=== PATIENT | female | born 1965 | race African-American/Black ===

== ENCOUNTER 2024-11-06 10:08 | Day surgery (SDC) | payer OTHER ==
[2024-11-02 11:12] LABS: Absolute Basophils 0.2 K/uL (0-0.5); Absolute Eosinophils 0.3 K/uL (0-0.5); Absolute Lymphocytes (CBC) 2.3 K/uL (0.7-4.9); Absolute Monocytes 0.5 K/uL (0.1-1.3); Eosinophils % 4.4 % (0-4.4); Hematocrit 42.8 % (36.0-45.0); Hemoglobin 14.6 g/dL (12.0-15.0); Lymphocytes % 36.7 % (15.3-44.8); MCH 28.8 pg (27.0-35.0); MCV 84.7 fL (80-100); MPV 9.5 fL (7.6-11.3); Monocytes % 7.6 % (3.3-12.3); Neutrophils % 48.3 % (41.7-73.7); Platelets 231 thou/uL (152-406); RBC Red Blood Cell Count 5.05 M/uL (3.86-4.86); Red Cell Distribution Width 13.5 % (12.1-15.2)
[2024-11-02 11:17] LABS: PT Prothrombin Time 10.8 SECONDS (9.4-12.5); Protime INR 0.96
[2024-11-02 11:21] LABS: Specific Gravity 1.023 (1.005-1.030); Sqamous Epithelial <5 /HPF (None Seen); Urine Bacteria None Seen /HPF (<20); Urine Bilirubin NEGATIVE (Negative); Urine Blood Negative (Negative); Urine Clarity Clear (Clear); Urine Color Light-Yellow (Yellow); Urine Culture Reflex Order NOT NEEDED; Urine Glucose NEGATIVE (Negative); Urine Ketones NEGATIVE (Negative); Urine Microscopic Reflex YN ORDER UMIC; Urine Nitrite NEGATIVE (Negative); Urine Protein NEGATIVE (Negative); Urine Urobilinogen Normal (Normal); Urine WBC <5 /HPF (<5); Urine pH 7.5 (5.0-7.0)
[2024-11-02 11:29] LABS: Albumin 3.5 g/dL (3.4-5.0); Anion Gap 7.2 mEq/L (5.0-15.0); Bilirubin Total 0.3 mg/dL (0.2-1.0); Globulin 3.5 g/dL (2.3-3.5); Potassium 4.2 mEq/L (3.5-5.1)
--- NOTE | 2024-11-02 13:13 | RAD REPORT ---
EXAMINATION: TWO VIEW CHEST XR CLINICAL INDICATION: Female, 58 years old. [facility] pre op for day surgery. Hypertension TECHNIQUE: 2 view radiographs of the chest were performed. COMPARISON: No prior exam. FINDINGS: The lungs are well inflated and clear. No pneumothorax or sizable effusion. The heart is normal in si ze. Mediastinal contours are unremarkable. IMPRESSION: No acute or significant abnormalities.
[2024-11-06] MEDS: Oxycodone HCl/Acetaminophen 5/325 MG TAB PO ONE (10:28)
[2024-11-06] MEDS: CELECOXIB 100 MG CAPSULE PO ONE (10:28)
[2024-11-06] MEDS: GABAPENTIN 300 MG CAP PO ONE (10:28)
[2024-11-06] MEDS: ACETAMINOPHEN 500 MG TAB PO ONE ×2 (10:28→19:27)
[2024-11-06] MEDS: CEFAZOLIN SODIUM 2 GM/VIAL ONE (12:39)
[2024-11-06] MEDS ORDERED: Ringers Lactate 1,000 ML IV ONE (12:57)
[2024-11-06] MEDS ORDERED: GABAPENTIN 100 MG CAP ONE (12:57)
[2024-11-06] MEDS ORDERED: NS 0.9% VIAL 20 ML ONE (12:58)
[2024-11-06] MEDS ORDERED: dexAMETHasone 10 MG/ML VIAL ONE ×2 (13:01)
[2024-11-06] MEDS ORDERED: MIDAZOLAM HCL 2 MG/2 ML INJ ONE (13:01)
[2024-11-06] MEDS ORDERED: SODIUM BICARB 50 MEQ/50ML VIAL ONE (13:01)
[2024-11-06] MEDS ORDERED: KETOROLAC 30 MG/ML INJ ONE (13:01)
[2024-11-06] MEDS ORDERED: FENTANYL CITR 100 MCG/2 ML ONE (13:01)
[2024-11-06] MEDS ORDERED: DEXMEDETOMIDINE HCL 200 MCG/2 ML VIAL ONE (13:01)
[2024-11-06] MEDS ORDERED: KETAMINE HCL IN 0.9 % NACL 50 MG/5 ML SYRINGE IV ONE (13:01)
[2024-11-06] MEDS ORDERED: BUPIVACAINE 0.25% PF 30 ML VIAL ONE (13:01)
[2024-11-06] MEDS ORDERED: MAGNESIUM SULFATE 1 gm IVPB 1 GM/100 ML BAG IV ONE (13:01)
[2024-11-06] MEDS ORDERED: propofoL 200 MG/20 ML VIAL IV ONE (13:01)
[2024-11-06] MEDS ORDERED: LIDOCAINE 1% MPF 5 ML VIAL ONE (13:01)
[2024-11-06] MEDS ORDERED: EPINEPHRINE 1 MG/ML VIAL ONE (13:01)
[2024-11-06] MEDS ORDERED: LIDOCAINE 2% MPF 5 ML VIAL ONE (13:01)
[2024-11-06] MEDS ORDERED: BUPIVACAINE 0.5% PF 10 ML VIAL ONE (13:01)
[2024-11-06] MEDS: TRANEXAMIC ACID 1,000 MG/10 ML VIAL IV ONE ×2 (13:05→14:51)
[2024-11-06] MEDS: Ringers Lactate 1,000 ML IV ONE (15:30)
--- NOTE | 2024-11-06 15:47 | P.BOP ---
Preoperative diagnosis: right knee pain/arthritis Postoperative diagnosis: same Primary procedure: right total knee arthoplasty Estimated blood loss: 150ccs Anesthesia: General Complications: None Transferred to: Recovery Room Condition: Good
[2024-11-06] MEDS ORDERED: DOCUSATE NA 100 MG CAP PO PRN (15:48)
[2024-11-06] MEDS: ONDANSETRON 4 MG/2 ML VIAL ONE (16:32)
[2024-11-06] MEDS: CEFAZOLIN 1 GM in NA CHLORIDE 0.9% 50 ML IVPB SCH (17:13)
--- NOTE | 2024-11-06 17:30 | P.CNS ---
Date of Consult: 11/06/24 Reason for Consult: R)TKA Requesting Physician: Issac Ignacio Chief Complaint: Status post right total knee arthroplasty History of Present Illness: 58-year-old female with no significant past medical history presents status post 11/06 right total knee arthroplasty by Dr. Ignacio. Drowsy from surgery, responds to verbal, she reports mild headache, Tylenol ordered as needed x 1. She reports knee pain is controlled with as needed analgesia, no reported nausea, right lower extremity is on CPM doing passive range of motion, no acute distress noted, Surgical dressing, CDI Allergies No Known Allergies Allergy (Verified 11/02/24 10:24) Home Medications: Aspirin [Aspirin Regimen] 81 mg PO DAILY 11/02/24 - Past Medical/Surgical History Diabetic: No - Social History Smoking Status: Never smoker Alcohol use: No CD- Drugs: No Place of Residence: Home Review of Systems 10-point ROS is otherwise unremarkable Physical Examination Temp Pulse Resp BP Pulse Ox 98.3 F 81 18 132/89 100 11/06/24 16:42 11/06/24 16:42 11/06/24 16:42 11/06/24 16:42 11/06/24 10:28 General: In no apparent distress, Other (Drowsy, responds to verbal,) HEENT: Atraumatic, Normocephalic Neck: 2+ carotid pulse no bruit, JVD not distended Respiratory: Clear to auscultation bilaterally, Normal air movement Cardiovascular: Normal pulses, Regular rate/rhythm Capillary refill: >2 Seconds Gastrointestinal: Normal bowel sounds, Soft and benign Musculoskeletal: Other ( CPM machine in place) Integumentary: Other (Right knee surgical dressing clean dry and intact) Neurological: Normal speech, Normal strength at 5/5 x4 extr Conclusions/Impression: Assessment right total knee arthroplasty Dr. Ignacio following PRN analgesia. Antiemetics ordered Stool softeners, PT eval SS consulted for DC planning Regular diet Full code DVT Lovenox per surgeon Disposition Home, outpatient PT or home health per surgery team Critical Care: No Time Spent Managing Pts care (In Minutes): 45
[2024-11-06 17:32] VITALS: BMI 32.9
[2024-11-06] MEDS ORDERED: ONDANSETRON 4 MG (ODT) TAB PO PRN (17:33)
[2024-11-06] MEDS: NA CHLORIDE 0.9% 1,000 ML IV SCH (17:53)
[2024-11-06] MEDS: HYDROCODONE/APAP 7.5/325 MG TAB PO ONE (22:52)
--- NOTE | 2024-11-06 23:22 | OP ---
Date of Procedure: 11/06/2024 Surgeon: Issac Ignacio MD Preoperative Diagnosis: Right knee pain, unrelieved with all conservative measures and some chondral changes. Postoperative Diagnosis: Right knee pain, unrelieved with all conservative measures and some chondra l changes. Procedure: Right total knee arthroplasty using the [employer] PS System. Estimated Blood Loss: 150 cc Complications: There were no complications. Indication For Operation: Ms. Gamboa is a 58-year-old female who came to see me with severe pain. She has had previous injections of her knee. She is basically crying from pain. She says she is not ab le to sleep and quality of life is extremely poor. X-rays did not demonstrate profound arthritic den nges. However, despite further conservative measures, pain persisted. At this time, the patient camila cts total knee arthroplasty rather continuing on with severe pain. Risks, benefits, and alternatives of this have been discussed with her. She states she understands things as presented and wishes to proceed. Description Of Procedure: The patient was taken to the operating room and placed in supine position. She had previously had a block done in the holding area. General anesthesia was easily performed b y Anesthesia staff. Following this, a well-padded tourniquet was placed on superior right thigh. [facility] lower extremity was then prepped and draped in usual sterile fashion for procedure. After this, the leg was then elevated and gently exsanguinated using a tourniquet. The knee was bent and tourniq uet was raised. A standard anterior approach was then taken down carefully through skin and soft tis sues, meticulous hemostasis being maintained using Bovie electrocautery. The appropriate level was d etermined and the extensor mechanism was exposed. Following this, the superior medial pole of patell a was addressed and marked, and a standard medial parapatellar arthrotomy was performed with liberati on approximately 30 cc of rather normal-appearing synovial fluid. After this was performed, a medial meniscectomy was performed with debridement of anterior cruciate ligament, which appeared probably p artially torn, at least somewhat degenerated. Seen at this time was osteophyte formation along the m edial femoral condyle as well as what appeared to be a chondral defect of the medial tibial plateau a s well as some arthritic changes of the patella and lateral compartment. After this was performed, t he knee was bent. Patella was everted. Some fat pad was removed to allow for better visualization. The patella itself was very difficult to move laterally to expose. A quadriceps snip was performed; however, this also was not that helpful. Check was made for any restricted bands and it was still s omewhat difficult to jackie the patella and hold laterally. As it was being held laterally, it was fe lt that quite a bit of stress was being applied to the patellar ligament and therefore, it was treate d extremely careful throughout the rest of the case making visualization somewhat difficult. After t his, intramedullary alignment guide was placed. It was then measured to a size 62.5 and then femoral cuts were made, again being a little limited by difficulty with exposure from inability to fully mob ilize the patella laterally. After this, lateral meniscus was debrided. Tibia was cut, again diffic ult to make the lateral portion, as we had to be extremely careful with placement of the saw with reg davis to patellar tendon and position of the saw blade. The cut was completed using an osteotome as we ll as rongeurs to remove lateral osteophytes. After this has been trialed with a 67.5, it comes to f ull extension and appears to be well balanced. Flexion was a little tight. Therefore, it was re-cut with slight amount of more slope with now evened it with flexion/extension. It comes to full extens ion without problem and full flexion, and appears to be balanced. The patella appears to glide well. The patella was then calipered and cut, and a trial patella was placed and also again it appears to glide well with the trial poly and tibial baseplate. After this, the box was cut and tibia was punc hed, care being taken not to internally rotate. The surfaces were then prepped for cementation. The final tibia and femur as well as patella were then placed. The trial polyethylene was placed and he ld in place while the cement hardened, and there was removal of all unsupported cement. Following th is, allowing it to harden, the knee was brought up and the trial polyethylene was removed. It was no aysha that there was gapping along the lateral aspect of the femur, most likely and shifted slightly. [place] that this gap was not large enough to necessitate removal of the femur as the cement had hardene d. Decision was made to fill this void with some small amount of cement as the femur may be slightly tilted; however, definitely still had good alignment and still balance. [place] that removal of the fe moral component could most likely lead to more difficulties. After this, it was again irrigated and searched for any unsupported cement, which was removed. The final polyethylene was then placed and s ecured with locking bar. The knee was then brought through full range of motion. The patella still appears to glide extremely well, appears to be well balanced with full flexion and full extension, ba lanced in both flexion and extension. The wound was again irrigated and the extensor mechanism close d using Ethibond sutures. It was again irrigated. The skin was closed using Vicryl sutures, followe d by perla. The patient was placed in a well-padded sterile dressing, awakened, and taken to [facility] so room in good condition. No complications. /LAKESHIA Voice ID: [id number] Report ID: [id number]
[2024-11-07] MEDS: ENOXAPARIN 30 MG/0.3 ML SQ SCH (06:03)
[2024-11-07 07:00] LABS: Absolute Lymphocytes (CBC) 1.1 K/uL (0.7-4.9); Absolute Monocytes 0.9 K/uL (0.1-1.3); Absolute Neutrophil 10.6 K/uL (1.8-8.0); Basophils % 0.3 % (0-1.3); Hematocrit 41.2 % (36.0-45.0); Hemoglobin 13.7 g/dL (12.0-15.0); Lymphocytes % 8.6 % (15.3-44.8); MCH 28.3 pg (27.0-35.0); MCHC 33.2 g/dL (32.0-36.0); MCV 85.1 fL (80-100); MPV 9.7 fL (7.6-11.3); Monocytes % 7.2 % (3.3-12.3); Neutrophils % 83.9 % (41.7-73.7); Nucleated Red Blood Cells % 0.1 % (0-0); Platelets 225 thou/uL (152-406); RBC Red Blood Cell Count 4.84 M/uL (3.86-4.86); Red Cell Distribution Width 14.1 % (12.1-15.2)
[2024-11-07 08:02] LABS: Albumin 3.2 g/dL (3.4-5.0); Albumin/Globulin Ratio 0.9 (1.1-1.8); Anion Gap 9.9 mEq/L (5.0-15.0); Bilirubin Total 0.4 mg/dL (0.2-1.0); Globulin 3.5 g/dL (2.3-3.5); Potassium 3.9 mEq/L (3.5-5.1); Protein, Total 6.7 g/dL (6.4-8.2)
[2024-11-07 09:24] VITALS: O2SAT 98
[2024-11-07] MEDS: HYDROCODONE/APAP 7.5/325 MG TAB PO PRN (11:02)
[2024-11-07 12:07] VITALS: BP 140/90; TEMP 98.1
== END 2024-11-07 13:57 | disposition home health service (06) ==
LOC: OR 10:08 → 4TH 15:48 → OR 11-07 13:57
PROVIDERS: ATTEND Orthopaedic Surgery
PROC: 0SBC4ZZ Excision of Right Knee Joint, Percutaneous Endoscopic Approach (ICD-10-PCS; 2024-11-06)
PROC: 0SRC0J9 Replacement of Right Knee Joint with Synthetic Substitute, Cemented, Open Approach (ICD-10-PCS; principal; 2024-11-06 12:30)
DX: M17.11 Unilateral primary osteoarthritis, right knee (principal); M25.561 Pain in right knee
CPT/HCPCS: 27447; 29881; 29999; 85025 ×2; 81001; 36415 ×2; 85610; 88305; 88311; 85730; 80053 ×2; 71046; 97110; 97116; 97139; 97161; 97530; 94010; J3475; A4216; J2704; J2003 ×2; J1650 ×2; J2250; J3010; J1100 ×2; J0171; J2405; J7120 ×2; J7030; J0690 ×3; C1776